=== PATIENT | female | born 1985 | race African-American/Black ===

== ENCOUNTER 2017-04-02 04:45 | Inpatient (IN) | payer BC ==
[2017-04-02] MEDS ORDERED: ELECTROLYTE-148 SOLN 1,000 ML IV SCH (05:00)
[2017-04-02] MEDS ORDERED: AMPICILLIN - 2 GM in SODIUM CHLORIDE 100 ML IVPB ONE (05:30)
[2017-04-02] MEDS ORDERED: AMPICILLIN SODIUM 2 GM VIAL ONE (05:32)
--- NOTE | 2017-04-02 05:37 | HP ---
Past Medical History - Admission Chief Complaint: 30 y/o female presented to labor and delivery c/o spontaneous rupture of amniotic membranes at 3:15 am clear fluid . rupture of membrane was confirmed by fluid and via nitrozine. History of Present Illness: her antepartum course was UNCOMPLICATED BLOOD TYPE IS O POSITIVE NEGATIVE ,RPR NEGATIVE HBSAG IS NEGATIVE RUBELLA IS POSITIVE . 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: Alzheimer's, CVA, Dementia, Migraine, Multiple Sclerosis, Peripheral Neuropathy, Parkinson's, Seizure, Syncope, TIA, Vertigo, Other Cardiovascular: No: AFIB, Aneurysm, Aortic Insufficiency, Aortic Stenosis, CAD, CHF, Deep Vein Thrombosis, HTN, Hyperlipdemia, NM, Mitral Insufficiency, Mitral Stenosis, Murmur, Pulmonary Hypertension, Other Pulmonary: No: Asthma, Bronchitis, Cancer, COPD, O2 Dependent, Pneumonia, Previously Intubated, Pulmonary Embolus, Pulmonary Fibrosis, Sleep Apnea, Other Gastrointestinal: No: Ascites, Cancer, Constipation, Crohn's Disease, Diverticulitis, Diverticulosis, Esophageal Varices, Gastritis, GERD, GI Bleed, Hemorrhoids, Hiatal Hernia, Inflamatory Bowel Disease, Irritable Bowel Disease, Pancreatitis, Peptic Ulcer Disease, Ulcerative Colitis, Other Hepatobiliary: No: Cirrhosis, Cholelithiasis, Cholecystitis, Choledocholithiasis , Hepatitis A, Hepatitis B, Hepatitis C, Other Renal/: No: Renal Failure, Renal Inusuff, BPH, Cancer, Hematuria, Hemodialysis , Neurogenic Bladder, Renal Calculi, UTI, Other Reproductive: No: Ectopic , Endometriosis, Fibroids, PID, Polycystic Ovary Syndrome, Postmenopausal, Other ...: 2 ...Para: 0 ...Term: 0 ...: 0 ...Spon : 1 ...Induced : 0 ...Multiple Gestation: 1 ...LMP: 08/10/16 ... Weeks Gestation by Dates: 36.1 ...EDC by Sono: 04/28/17 Heme/Onc: Yes: Sickle Cell Trait Infectious Disease: No: AIDS, C-Diff, Herpes Zoster, HIV, MRSA, STD's, Tuberculosis, VREF, Other Psych: No: Addictions, Anxiety, Bipolar, Depression, Panic, Psychosis, Schizophrenia, Other Musculoskeletal: No: Bursitis, Chronic low back pain, Hemiparesis, Hemiplegia, Osteoarthritis, Paraplegia, Other Rheumatology: No: Fibromyalgia, Gout, Lupus, Rheumatoid Arthritis, Sarcoidosis, Vasculitis, Other ENT: No: Allergic Rhinitis, Sinusitis, Other Endocrine: No: Guayanilla's Disease, Bull's Disease, Diabetes Insipidus, Diabetes Mellitus, Hyperparathyroidism, Hyperthyroidism, Hypothyroidism, Osteopenia, SIADH, Other Dermatology: No: Basal Cell, Cellulitis, Eczema, Melanoma, Psoriasis, Squamous Cell, Other - Past Surgical History Hx Myomectomy: No Hx Transabdominal Cerclage: No - Smoking History Smoking history: Never smoked Have you smoked in the past 12 months: No - Alcohol/Substance Use Hx Alcohol Use: No History of Substance Use: reports: None Home Medications - Allergies Allergies/Adverse Reactions: Allergies Allergy/AdvReac Type Severity Reaction Status Date / Time No Known Allergies Allergy Verified 04/02/17 05:45 - Home Medications Home Medications: Ambulatory Orders Ferrous Sulfate 325 mg PO DAILY 04/02/17 Multivitamin Tablet 1 tablet PO DAILY 04/02/17 Home Medications (free text): NO KNOWN DRUG ALLERGIES Family Disease History - Family Disease History Family History: Unremarkable Review of Systems - Review of Systems Constitutional: reports: No Symptoms Eyes: reports: No Symptoms. denies: Blind Spots, Blurred Vision, Double Vision , Eye Pain, Floaters, Photophobia, Recent Change in Vision, Other Neck: denies: No Symptoms, Decreased ROM, Lumps, Pain on Movement, Stiffness, Swollen Glands, Tenderness, Other Cardiovascular: reports: No Symptoms Respiratory: reports: No Symptoms Gastrointestinal: reports: No Symptoms Genitourinary: reports: No Symptoms Breasts: reports: No Symptoms Reported Musculoskeletal: reports: No Symptoms Integumentary: reports: No Symptoms Neurological: reports: No Symptoms Endocrine: reports: No Symptoms Hematology/Lymphatic: reports: No Symptoms Psychiatric: reports: No Symptoms Physical Exam - Maternity Constitutional: Yes: Well Nourished, No Distress, Calm Eyes: Yes: WNL, Conjunctiva Clear HENT: Yes: WNL, Atraumatic, Normocephalic Cardiovascular: Yes: WNL, Regular Rate and Rhythm Lungs: Clear to auscultation Breast(s): Yes: WNL - Abdominal Exam/OB Number of Fetuses: Multiple Presentation: Twins Contractions: Yes Regularity: Irregular Intensity: Unaware Monitor Mode: External Heart Rate (range): 150/149 Category: I Accelerations: Uniform Decelerations: None - Vaginal Exam/OB Vaginal Bleediing: No Dilatation (cm): FINGER Effacement (%): LONG Amniotic Membrane Status: Ruptured (CLEAR) Nitrazine Test: Positive Amniotic Fluid: Yes: Clear - Physical Exam Musculoskeletal: Yes: WNL Extremities: Yes: WNL Edema: No Integumentary: Yes: WNL Deep Tendon Reflex Grade: Normal +2 ...Motor Strength: WNL Psychiatric: Yes: WNL, Alert, Oriented Assessment/Plan TWIN AT 36.1 WEEKS DI/DI TWIN H/O SICKLE CELL TRAIT FOB IS NEGATIVE NEG NT/MOD SEQ SCREEN NORMAL 1 HOUR GCT H/O RIGHT SALPINGECTOMT/R ECTOPIC H/O UTERINE FIBROIDS PLAN FOR DELIVERY IS VAGINAL PENDING THE RESULTS OF THE SONOGRAM.
[2017-04-02 05:38] LABS: BASO % 0.4 % (0-2.0); EOS % 0.3 % (0-4.5); HEMATOCRIT 29.8 % (32.4-45.2); HEMOGLOBIN 9.7 GM/dL (10.7-15.3); LYMPH % 27.3 % (8-40); MCH 23.1 pg (25.7-33.7); MCHC 32.5 g/dl (32.0-36.0); MEAN PLT VOLUME 9.6 fl (7.5-11.1); MONO % 11.3 % (3.8-10.2); NEUT % 60.7 % (42.8-82.8); PLATELET COUNT 149 K/MM3 (134-434); RBC 4.19 M/mm3 (3.60-5.2); WHITE BLOOD COUNT 5.9 K/mm3 (4.0-10.0)
[2017-04-02 05:45] VITALS: BMI 32.9
[2017-04-02 05:53] LABS: INR 0.96 (0.82-1.09); PROTHROMBIN TIME (PATIENT) 10.8 SEC (9.98-11.88)
[2017-04-02 05:55] LABS: ACTIVATED PTT 31.4 SECONDS (26.9-34.4)
[2017-04-02 06:00] LABS: ANION GAP 9 (8-16); BLOOD UREA NITROGEN 7 mg/dL (7-18); CALCIUM 7.8 mg/dL (8.5-10.1); CHLORIDE 109 mmol/L (98-107); CO2 21 mmol/L (21-32); CREATININE 0.6 mg/dL (0.55-1.02); GLUCOSE,RANDOM 75 mg/dL (74-106); POTASSIUM 3.9 mmol/L (3.5-5.1); SODIUM 139 mmol/L (136-145)
--- NOTE | 2017-04-02 07:06 | PN ---
Progress Note, Labor Vaginal Exam #1 Amniotic Membrane Status: Ruptured (iup at 36.1 weeks twin gestation with premature rupture of membranes plan delivery by section)
[2017-04-02] MEDS: ELECTROLYTE-148 SOLN 1,000 ML IV SCH ×2 (08:00→13:00)
[2017-04-02] MEDS ORDERED: WITCH HAZEL 50% (TUCKS) 40 PAD/JAR PAD TP PRN (08:08)
[2017-04-02] MEDS ORDERED: diphenhydrAMINE HCL 25 MG CAPSULE (FP) PO PRN (08:08)
[2017-04-02] MEDS ORDERED: BENZOCAINE 20% 57 GM BOTTLE TP PRN (08:08)
[2017-04-02] MEDS ORDERED: BENZOCAINE 28 GM HEMORRHOIDAL OINTMENT PR PRN (08:08)
[2017-04-02] MEDS ORDERED: METHYLERGONOVINE MALEATE 0.2 MG/1 ML AMP IM PRN (08:08)
--- NOTE | 2017-04-02 08:22 | PN ---
Progress Note (short form) - Note Progress Note: Pt scanned at bedside confirmation of VTX/ back down transverse with srom at 36.1 week advised Primary Section but pt desires vaginal delivery Informed of risks delay of Section with rupture of membranes Case discussed with pt and grandmother desires to wait to see if goes into labor Neonatology discussed case HCt 29.8 Problem List - Problems (1) Twin gestation in third trimester Code(s): O30.003 - TWIN PREG, UNSP NUM PLCNTA & AMNIO SACS, THIRD TRIMESTER (2) Premature rupture of membranes (PROM), onset of labor within 24 hours, delivered, Code(s): O42.019 - PRETRM SUPRIYA ROM, ONSET LABOR W/N 24 HOURS OF RUPT, UNSP TRI
--- NOTE | 2017-04-02 08:49 | PN ---
Ante-Partal Exam - Subjective Subjective: Pt desires vaginal delivery Vital Signs: Vital Signs Temperature 98.1 F 04/02/17 08:00 Pulse Rate 89 04/02/17 08:00 Respiratory Rate 20 04/02/17 08:00 Blood Pressure 130/84 04/02/17 08:00 O2 Sat by Pulse Oximetry (%) Bleeding: No Headache: No Visual changes: No Right upper quadrant pain: No - Contractions Contractions: Yes Regularity: Regular Intensity: Moderate Monitor Mode: External - Exam during Labor Variability: Moderate Category: I Monitor Decelerations: None Exam: Vaginal Dilatation (cm): FT Effacement (%): 50% Amniotic Membrane Status: Ruptured Nitrazine Test: Positive Amniotic Fluid: Clear Presentation: Vertex Station: -2 - Intrapartum Hemorrhage Risk Risk Score: 1 Risk Level: Medium Risk - Assessment/Plan Assessment/Plan: Twin gestation at 36 weeks srom prodromal labor VTX/Transverse Plan COntinue monitoring EFM
[2017-04-02] MEDS: AMPICILLIN - 1 GM in SODIUM CHLORIDE 100 ML IVPB SCH ×4 (09:39→22:02)
[2017-04-02] MEDS ORDERED: TUBERCULIN PPD 5 TU/0.1ML SYRINGE (IN PATIENT USE ONLY) ID ONE (10:00)
--- NOTE | 2017-04-02 15:28 | PN ---
Ante-Partal Exam - Subjective Subjective: Pt mild contractions leaking fluids with twin gestation at 36 week Vital Signs: Vital Signs Temperature 97.6 F 04/02/17 14:00 Pulse Rate 72 04/02/17 14:00 Respiratory Rate 20 04/02/17 14:00 Blood Pressure 126/86 04/02/17 14:00 O2 Sat by Pulse Oximetry (%) Bleeding: No Headache: No Visual changes: No Right upper quadrant pain: No - Contractions Contractions: Yes Regularity: Regular Intensity: Mild Monitor Mode: External - Exam during Labor Variability: Moderate Heart Rate Location: [facility] Category: I Monitor Accelerations: Present Monitor Decelerations: None Amniotic Membrane Status: Ruptured Presentation: Vertex - Intrapartum Hemorrhage Risk Risk Score: 1 Risk Level: Medium Risk - Assessment/Plan Assessment/Plan: iup at 36.1 week twins PPOM at 36.1 week vtx/transverse twin gestation mild contractions - not in labor Plan will do CS at 8pm notify peds notify anesthesvelasquez kelsey
[2017-04-02] MEDS ORDERED: morphine SULFATE/Preservative Free 0.5 MG/ML (1cc Syringe) EP ONE (19:51)
[2017-04-02] MEDS ORDERED: ONDANSETRON 4 MG/2 ML VIAL IVPUSH PRN (19:51)
[2017-04-02] MEDS ORDERED: IBUPROFEN 800 MG/8 ML IJ IVPB PRN (19:52)
--- NOTE | 2017-04-02 20:18 | PN ---
Ante-Partal Exam - Subjective Subjective: Pt without complaints + rom no bleeding no pain Vital Signs: Vital Signs Temperature 98.1 F 04/02/17 19:00 Pulse Rate 82 04/02/17 19:00 Respiratory Rate 20 04/02/17 19:00 Blood Pressure 127/79 04/02/17 19:00 O2 Sat by Pulse Oximetry (%) Bleeding: No Headache: No Visual changes: No Right upper quadrant pain: No - Contractions Contractions: Yes Regularity: Regular Intensity: Unaware Monitor Mode: External - Exam during Labor Heart Rate: 140 (150 tein B) Variability: Moderate Category: I Monitor Accelerations: Present Monitor Decelerations: None Exam: Vaginal Dilatation (cm): FT Effacement (%): 70 Amniotic Membrane Status: Ruptured Nitrazine Test: Positive Amniotic Fluid: Clear Presentation: Vertex Station: -2 - Intrapartum Hemorrhage Risk Risk Score: 1 Risk Level: Medium Risk - Assessment/Plan Assessment/Plan: IUP at 36 week twin gestation PROM Cat 1 Failure to dilate Plan primary CS notify Neonatology Notify anesthesia
--- NOTE | 2017-04-02 20:21 | OP ---
Operative Note - Note: Operative Date: 04/02/17 Pre-Operative Diagnosis: Failure to progress. PPROM. Twin gestation at 36 week Operation: Primary low transverse Sectoin Findings: Twin A Cord presenting vtx male nuchal cord Twin B Transverse right tube - only proximal tube seen left fallopian tube normal Post-Operative Diagnosis: Same as Pre-op Surgeon: Kassidy Lomax Whale Trainer: Mychal Balbuena Anesthesiologist/COMMUNITY RECREATION PROGRAMMER: Josué Romero Anesthesia: Spinal Specimens Removed: placenta A & placenta B Estimated Blood Loss (mls): 800 Operative Report Dictated: Yes
[2017-04-02] MEDS ORDERED: ceFAZolin SODIUM 1 GM VIAL ONE (20:23)
[2017-04-02] MEDS ORDERED: morphine SULFATE/Preservative Free 0.5 MG/ML (1cc Syringe) ONE (20:23)
[2017-04-02] MEDS ORDERED: OXYTOCIN 10 UNITS/ML VIAL ONE ×2 (21:02→21:35)
[2017-04-02] MEDS ORDERED: OXYTOCIN 20 UNITS in 0.9% NS 20 UNIT/1,000 ML INFUS.BAG IV SCH (22:00)
[2017-04-02 22:09] LABS: VENOUS PC02 53.9 mmHg (38-52); VENOUS PH 7.25 (7.32-7.42)
[2017-04-02 22:14] LABS: VENOUS PO2 17.1 mmHg (28-48)
--- NOTE | 2017-04-02 22:14 | OP ---
DATE OF OPERATION: 04/02/2017 PREOPERATIVE DIAGNOSIS: Failure to progress, premature ruptured membranes, and twin gestation at 36 weeks. OPERATION: Primary low transverse section. POSTOPERATIVE DIAGNOSIS: Twin A vertex and twin B transverse. Twin A baby boy, twin B baby girl. Live female and male . SURGEON: Phill Lomax M.D. LAB[employer]ER [employer]: [place] ANESTHESIOLOGIST: Josué Romero M.D. ANESTHESIA: Spinal. DESCRIPTION OF PROCEDURE: Patient was taken to the operating room, placed in supine position. Prepped and draped in usual sterile fashion. Timeout was performed in accordance with hospital regulation. Pfannenstiel skin incision was made with a scalpel after timeout had been performed. Cautery was then used to go through layers of abdominal wall towards the fascia. Fascia was cut in the midline, and cautery was then used to open the fascia in smiling fashion. Adrianne was then used to bluntly and sharply dissect the rectus muscle of the fascia. The muscle split in the midline. Peritoneal cavity was then entered and carried upward and downward. The bladder retractor was then placed. Vesicouterine reflection was then entered. The bladder was bluntly dissected out of the operative field. The scalpel was then used to make a low transverse uterine incision. Incision was carried upward using bandage scissors. A live male infant was delivered and noted to have a cord presenting prior to the baby. A nuchal cord x1 was also seen. was delivered without difficulty in OP position. The cord was clamped and cut. Cord pH obtained, and cord blood obtained. was handed to benzene operator. Baby B had flipped from transverse to vertex presentation and delivered on OP position. Nose to mouth suction performed. Shoulders were delivered without difficulty. Cord was clamped and cut. Cord pH obtained, cord blood obtained. Infant girl was handed to benzene operator. The first twin was infant boy and placentas were manually extracted from the uterus. The uterus was exteriorized and cleaned with clean lap pads. The uterine incision was then closed using 0 Biosyn suture, first layer continuous interlocking, second layer imbricating the first layer. Hemostasis was achieved using [id number] sutures. A right tube was noted to be partially removed from patient had a previous ectopic. Left tube was noted to be normal. An anterior 3-cm myoma was also noted. Uterus interiorized. Abdominal cavity cleaned with clean lap pads. Peritoneum closed using 0 Biosyn suture. Fascia was then closed using 0 Vicryl suture in 2 parts. Subcutaneous was then closed using 0 Biosyn suture, and skin was then closed using 3-0 Vicryl in subcuticular fashion. Wound was washed and dressed. Patient tolerated the procedure well. Estimated blood 800 mL. PHILL LOMAX M.D. [id number]
[2017-04-02 22:18] LABS: ARTERIAL BLOOD GAS BASE EXCESS -7.5 meq/l (-2-2)
[2017-04-02 22:22] LABS: ARTERIAL BLOOD GAS pH 7.17 (7.35-7.45)
[2017-04-02 22:23] LABS: ARTERIAL BLOOD GAS PCO2 64.6 mmHg (35-45)
[2017-04-02 22:25] LABS: ARTERIAL BLD GAS O2 SATURATION 15.2 % (90-98.9); ARTERIAL BLOOD GAS PO2 10.2 mmHg (80-100)
[2017-04-02 22:26] LABS: VENOUS PH 7.26 (7.32-7.42)
[2017-04-02 22:27] LABS: VENOUS PC02 51.5 mmHg (38-52)
[2017-04-02 22:31] LABS: ARTERIAL BLOOD GAS PCO2 53.4 mmHg (35-45)
[2017-04-02] MEDS ORDERED: OXYTOCIN 20 UNITS in 0.9% NS 20 UNIT/1,000 ML INFUS.BAG IV ONE (22:35)
[2017-04-02 22:38] LABS: ARTERIAL BLOOD GAS PO2 21.4 mmHg (80-100); ARTERIAL BLOOD GAS pH 7.23 (7.35-7.45)
[2017-04-02 22:39] LABS: ARTERIAL BLD GAS O2 SATURATION 35.3 % (90-98.9)
[2017-04-02 22:40] LABS: VENOUS PO2 17.5 mmHg (28-48)
[2017-04-03 07:47] LABS: HEMATOCRIT 24.3 % (32.4-45.2); HEMOGLOBIN 7.9 GM/dL (10.7-15.3); MCH 22.9 pg (25.7-33.7); MCHC 32.5 g/dl (32.0-36.0); MEAN CELL VOLUME 70.4 fl (80-96); PLATELET COUNT 120 K/MM3 (134-434); RBC 3.45 M/mm3 (3.60-5.2); RDW 16.7 % (11.6-15.6); WHITE BLOOD COUNT 10.8 K/mm3 (4.0-10.0)
[2017-04-03] MEDS ORDERED: BISACODYL 10 MG SUPP.RECT RC PRN (08:09)
[2017-04-03] MEDS: IBUPROFEN 800 MG/8 ML IJ IVPB PRN ×2 (09:20→15:41)
--- NOTE | 2017-04-03 09:48 | PN ---
Progress Note (SOAP) - Subjective Chief Complaint: Pt doing well - Current Medications Current Medications: Active Medications Acetaminophen (Tylenol -) 650 mg PO Q4H PRN PRN Reason: FEVER Benzocaine (Americaine 20% [place] -) 1 spray TP PRN PRN PRN Reason: Pain - Topical Benzocaine (Americaine Ointment -) 1 applic CO PRN PRN PRN Reason: Pain - Topical Bisacodyl (Dulcolax Suppository -) 10 mg RC PRN PRN PRN Reason: CONSTIPATION Diphenhydramine HCl (Benadryl -) 25 mg PO Q6H PRN PRN Reason: FOR ITCHING Diphenhydramine HCl (Benadryl Injection -) 25 mg IVPUSH Q4H PRN PRN Reason: Pruritis Last Admin: 04/02/17 22:45 Dose: 25 mg Parenteral Electrolytes (Plasma-Lyte 148 -) 1,000 mls @ 125 mls/hr IV [facility] Last Admin: 04/02/17 05:30 Dose: 125 mls/hr Parenteral Electrolytes (Plasma-Lyte 148 -) 1,000 mls @ 125 mls/hr IV [facility] Last Admin: 04/02/17 13:00 Dose: 125 mls/hr Oxytocin/Sodium Chloride (Normal Saline+20 Units Oxytocin -) 20 unit in 1,000 mls @ 125 mls/hr IV [facility] Last Admin: 04/02/17 22:35 Dose: 125 mls/hr Ibuprofen (Caldolor Injection -) 800 mg IVPB Q6H PRN PRN Reason: Fever - If PO not effective. Last Admin: 04/03/17 09:20 Dose: 800 mg Ibuprofen (Motrin -) 600 mg PO Q4H PRN PRN Reason: PAIN LEVEL 1-5 Ibuprofen (Caldolor Injection -) 600 mg IVPB Q8H PRN PRN Reason: FEVER Methylergonovine Maleate (Methergine Injection -) 0.2 mg IM Q4H PRN PRN Reason: EXCESSIVE BLEEDING Ondansetron HCl (Zofran Injection) 4 mg IVPUSH Q4H PRN PRN Reason: NAUSEA Oxycodone HCl (Roxicodone -) 5 mg PO Q4H PRN PRN Reason: PAIN LEVEL 1-5 Oxycodone HCl (Roxicodone -) 10 mg PO Q4H PRN PRN Reason: PAIN LEVEL 6-10 Senna/Docusate Sodium (Pericolace -) 2 tablet PO HS PRN PRN Reason: CONSTIPATION Simethicone (Mylicon -) 80 mg PO Q4H PRN PRN Reason: GAS Witch Aisha/Glycerin (Tucks Pads -) 1 pad TP PRN PRN PRN Reason: Pain - Topical - Objective Vital Signs: Vital Signs Temperature 99.3 F 04/03/17 06:00 Pulse Rate 102 H 04/03/17 06:00 Respiratory Rate 20 04/03/17 09:00 Blood Pressure 113/67 04/03/17 06:00 O2 Sat by Pulse Oximetry (%) 100 04/02/17 21:50 Constitutional: Yes: Well Nourished, No Distress Cardiovascular: Yes: WNL Respiratory: Yes: WNL Gastrointestinal: Yes: WNL ....Post : Yes: Uterus firm, Uterus non-tender Wound/Incision: Yes: Steri Strips, Open to air Psychiatric: Yes: WNL, Alert, Oriented Labs Lab Results: CBC, BMP 04/03/17 06:10 04/02/17 05:30 Problem List - Problems (1) Twin gestation in third trimester Code(s): O30.003 - TWIN PREG, UNSP NUM PLCNTA & AMNIO SACS, THIRD TRIMESTER (2) Premature rupture of membranes (PROM), onset of labor within 24 hours, delivered, Code(s): O42.019 - PRETRM SUPRIYA ROM, ONSET LABOR W/N 24 HOURS OF RUPT, UNSP TRI Assessment/Plan POD # 1 S/P CS Plan OOB percocet
--- NOTE | 2017-04-03 11:45 | PN ---
Progress Note (short form) - Note Progress Note: Anesthesia POD#1 S/P under spinal anesthesia VSS,itch is still present but less,no N/V,pain is bearable. Full recovery in her legs. Esther Rose MD.
[2017-04-04] MEDS: ACETAMINOPHEN 325 MG TABLET (FP) PO PRN ×4 (01:50→22:11)
[2017-04-04] MEDS: oxyCODONE HCL 5 MG TABLET PO PRN ×4 (01:50→22:11)
[2017-04-04] MEDS: SIMETHICONE 80 MG TAB.CHEW (FP) PO PRN ×4 (01:50→22:11)
--- NOTE | 2017-04-04 18:41 | PATH ---
Surgical Pathology Report Patient Name: CHARLES FLOOD [facility]. Rec. 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 Electronically Signed Neda Jefferson M.D. Gross Description Received in formalin labeled "placenta," are twin placentas comprised of 2 separate discs, joined by dividing membranes. There is one clamp marking the umbilical cord placenta "A" and 2 clamps marking the umbilical cord of placenta "B," per the surgeon. Placenta "A" is 387 g and measures 18.0 x 13.5 x 2.0 cm. The attached membranes are carter, translucent with focal opacities and insert marginally. The umbilical cord measures 13 cm in length and averages 1.3 cm in diameter. The cord inserts eccentrically, 2.5 cm to the nearest margin. No true knots or strictures are identified. Cut surface of the umbilical cord reveals 3 vessels. The surface is khan blue with minimal fibrin deposition and appropriate caliber vessels. The maternal surface is red-brown with focal defects. Sectioning reveals red-brown, spongy parenchyma. No lesions are identified. Placenta "B" is 314 g and measures 21.0 x 13.0 x 1.8 cm. The attached membranes are carter, translucent with focal opacities and insert marginally. The umbilical cord measures 14 cm in length and averages 1 cm in diameter. The cord inserts eccentrically, 2.5 cm to the nearest margin. No true knots or strictures are identified. Cut surface of the umbilical cord reveals 3 vessels. The surface is khan blue with minimal fibrin deposition and appropriate caliber vessels. The maternal surface is red-brown with focal defects. Sectioning reveals red-brown, spongy parenchyma. No lesions are identified. Headwaiter/Headwaitress sections are submitted in 7 cassettes as follows: 1-placenta "A" membrane rolls and umbilical cord; 0-5-yqox-thickness sections of placenta "A"; 4-dividing membranes; 5-placenta "B" membrane rolls and umbilical cord; 1-6-reqi-thickness sections of placenta "B". 04/03/2017
[2017-04-04] MEDS: SENNOSIDES/DOCUSATE COMBO (SENNA PLUS) TABLET (UD) PO PRN (22:10)
--- NOTE | 2017-04-05 01:25 | PN ---
Progress Note (SOAP) - Subjective Chief Complaint: Pt doing well + flatus - Current Medications Current Medications: Active Medications Acetaminophen (Tylenol -) 650 mg PO Q4H PRN PRN Reason: FEVER Last Admin: 04/04/17 22:11 Dose: 650 mg Benzocaine (Americaine 20% [place] -) 1 spray TP PRN PRN PRN Reason: Pain - Topical Benzocaine (Americaine Ointment -) 1 applic ME PRN PRN PRN Reason: Pain - Topical Bisacodyl (Dulcolax Suppository -) 10 mg RC PRN PRN PRN Reason: CONSTIPATION Diphenhydramine HCl (Benadryl -) 25 mg PO Q6H PRN PRN Reason: FOR ITCHING Diphenhydramine HCl (Benadryl Injection -) 25 mg IVPUSH Q4H PRN PRN Reason: Pruritis Last Admin: 04/02/17 22:45 Dose: 25 mg Ibuprofen (Caldolor Injection -) 800 mg IVPB Q6H PRN PRN Reason: Fever - If PO not effective. Last Admin: 04/03/17 15:41 Dose: 800 mg Ibuprofen (Motrin -) 600 mg PO Q4H PRN PRN Reason: PAIN LEVEL 1-5 Ibuprofen (Caldolor Injection -) 600 mg IVPB Q8H PRN PRN Reason: FEVER Methylergonovine Maleate (Methergine Injection -) 0.2 mg IM Q4H PRN PRN Reason: EXCESSIVE BLEEDING Ondansetron HCl (Zofran Injection) 4 mg IVPUSH Q4H PRN PRN Reason: NAUSEA Oxycodone HCl (Roxicodone -) 5 mg PO Q4H PRN PRN Reason: PAIN LEVEL 1-5 Last Admin: 04/04/17 18:06 Dose: 5 mg Oxycodone HCl (Roxicodone -) 10 mg PO Q4H PRN PRN Reason: PAIN LEVEL 6-10 Last Admin: 04/04/17 22:11 Dose: 10 mg Senna/Docusate Sodium (Pericolace -) 2 tablet PO HS PRN PRN Reason: CONSTIPATION Last Admin: 04/04/17 22:10 Dose: 2 tablet Simethicone (Mylicon -) 80 mg PO Q4H PRN PRN Reason: GAS Last Admin: 04/04/17 22:11 Dose: 80 mg Witch Aisha/Glycerin (Tucks Pads -) 1 pad TP PRN PRN PRN Reason: Pain - Topical - Objective Vital Signs: Vital Signs Temperature 98.5 F 04/04/17 22:00 Pulse Rate 100 H 04/04/17 22:00 Respiratory Rate 20 04/04/17 22:00 Blood Pressure 126/72 04/04/17 22:00 O2 Sat by Pulse Oximetry (%) 100 04/02/17 21:50 Constitutional: Yes: Well Nourished, No Distress Respiratory: Yes: WNL Gastrointestinal: Yes: WNL, Normal Bowel Sounds ....Post : Yes: Uterus firm, Uterus non-tender Breast(s): Yes: WNL Musculoskeletal: Yes: WNL Extremities: Yes: WNL Edema: No Wound/Incision: Yes: Clean/Dry, Well Approximated, Steri Strips, Open to air Neurological: Yes: WNL, Alert, Oriented Labs Lab Results: CBC, BMP 04/03/17 06:10 04/02/17 05:30 Problem List - Problems (1) Twin gestation in third trimester Code(s): O30.003 - TWIN PREG, UNSP NUM PLCNTA & AMNIO SACS, THIRD TRIMESTER (2) Premature rupture of membranes (PROM), onset of labor within 24 hours, delivered, Code(s): O42.019 - PRETRM SUPRIYA ROM, ONSET LABOR W/N 24 HOURS OF RUPT, UNSP TRI Assessment/Plan POD2 Stable Anemia Plan OOB Percocet
[2017-04-05 09:05] LABS: HEMATOCRIT 21.4 % (32.4-45.2); MCH 23.1 pg (25.7-33.7); MCHC 32.8 g/dl (32.0-36.0); MEAN CELL VOLUME 70.4 fl (80-96); MEAN PLT VOLUME 9.3 fl (7.5-11.1); PLATELET COUNT 150 K/MM3 (134-434); RBC 3.04 M/mm3 (3.60-5.2); RDW 17.9 % (11.6-15.6); WHITE BLOOD COUNT 10.9 K/mm3 (4.0-10.0)
[2017-04-05] MEDS: ACETAMINOPHEN 325 MG TABLET (FP) PO PRN ×2 (10:30→21:58)
[2017-04-05] MEDS: IBUPROFEN 600 MG TABLET (FP) PO PRN ×2 (10:31→21:58)
[2017-04-05] MEDS: SIMETHICONE 80 MG TAB.CHEW (FP) PO PRN ×2 (10:32→21:57)
[2017-04-05] MEDS: FERROUS SO4 325 MG TABLET (FP) PO SCH (21:57)
[2017-04-05] MEDS: SENNOSIDES/DOCUSATE COMBO (SENNA PLUS) TABLET (UD) PO PRN (21:58)
--- NOTE | 2017-04-06 09:19 | DS ---
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 Vital Signs: Vital Signs Temperature 97.4 F L 04/05/17 22:00 Pulse Rate 103 H 04/05/17 22:00 Respiratory Rate 20 04/05/17 22:00 Blood Pressure 122/91 04/05/17 22:00 O2 Sat by Pulse Oximetry (%) 100 04/02/17 21:50 Constitutional: Yes: Well Nourished Eyes: Yes: Conjunctiva Clear HENT: Yes: Atraumatic Neck: Yes: Supple Cardiovascular: Yes: Regular Rate and Rhythm Respiratory: Yes: Regular Gastrointestinal: Yes: Normal Bowel Sounds External Genitalia: Yes: Normal Vaginal Exam: Yes: Normal Cervix: Yes: Normal Uterus: Yes: Firm Wound/Incision: Yes: Well Approximated, Steri Strips (in place) Neurological: Yes: Alert, Oriented ...Motor Strength: WNL Psychiatric: Yes: Alert, Oriented Labs: CBC, BMP 04/05/17 08:00 04/02/17 05:30 Delivery - Delivery Episiotomy/Laceration: None EBL (cc): 800 Delivery, Single - [place] Feeding Plan Initial Plan: Exclusive throughout hospitalization Delivery, Multiple Births - Stages of Labor Delivery Baby "A" Date: 04/02/17 Time: 21:01 Delivery Baby "B" Date: 04/02/17 Time: 21:03 Placenta/Membranes "A" Date: 04/02/17 Time: 21:06 Placenta/Membranes "B" Date: 04/02/17 Time: 21:06 - Condition of Multiple Births [place] 1 (A) 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 Cognos Developer: Gilbert Sue Infant Gender: Male Weight: 6 lb 1 oz Total Hours ROM (HRS/MINS): 17h46m 2 (B) 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 Cognos Developer: Gilbert Sue Infant Gender: Female Weight: 5 lb 1 oz Position: OP Total Hours ROM (HRS/MINS): 1MIN - 1 (A) 1 Minute Score: 9 [place] 1 (A) 5 Minutes Score: 9 [place] 2 (B) 1 Minute Score: 8 [place] 2 (B) 5 Minutes Score: 9 Discharge Summary Reason For Visit: LABOR ADMIT Current Active Problems Premature rupture of membranes (PROM), onset of labor within 24 hours, delivered , (Acute) Twin gestation in third trimester (Acute) Procedures: Principal: Primary Low Transverse Hospital Course: Routine post op care Condition: Good - Instructions Diet, Activity, Other Instructions: Physical activity Resume your normal everyday activity as tolerated no heavy lifting or exercise until seen by your surgeon. You may walk unlimited rosita of and climb stairs. You may resume driving the car when you feel safe and comfortable behind the wheel. No sexual activity as instructed. Wound care If you have a bandage, leave it on, and keep dry for 48-72 hours. After that time discard the outer bandage. If they are tapes on the skin under the out of bandage leave them in place. They will peel off in the next 7 to 10 days. Do Not Peel them off. You may shower the day after surgery. If there are tapes present on the skin, you may shower over them. Diet There are no dietary restrictions. Eat healthy, high-fiber foods. Drink 6 to 8 glasses of liquid each day. This will assist in keeping your bowels are regular. Pain management You may take Tylenol or acetaminophen or Ibuprofen (for example, Motrin, Advil etc.) from my pain prescription medication is ordered should be taken as prescribed for moderate to severe pain. Call MD for any of the following: Severe pain not relieved by medication Fever of 101 or higher Excessive bleeding or drainage on dressing Inability to urinate Disposition: HOME - Home Medications Comprehensive Discharge Medication List: Ambulatory Orders Ferrous Sulfate 325 mg PO DAILY 04/02/17 Multivitamin Tablet 1 tablet PO DAILY 04/02/17 Ferrous Sulfate 325 mg PO ASDIR 30 Days #60 tablet 04/05/17 Oxycodone HCl/Acetaminophen [Percocet 5-325 mg Tablet] 1 - 2 tab PO Q6H #20 tab MDD 6 04/05/17
[2017-04-06] MEDS: IBUPROFEN 600 MG TABLET (FP) PO PRN ×2 (09:23→21:25)
[2017-04-06] MEDS: ACETAMINOPHEN 325 MG TABLET (FP) PO PRN ×2 (09:24→21:26)
[2017-04-06] MEDS: FERROUS SO4 325 MG TABLET (FP) PO SCH ×2 (09:25→21:24)
--- NOTE | 2017-04-06 17:47 | PN ---
Progress Note (short form) - Note Progress Note: Called due to pt with dizziness and crying due to bab staying in hospital will get consult from hospitalist and do stat CBC Vital Signs Period Temp Pulse Resp BP Sys/Niño Pulse Ox Last 24 Hr 97.4 F-99.5 F 100-103 20-20 114-122/78-91 Vital Signs Period Temp Pulse Resp BP Sys/Niño Pulse Ox Last 24 Hr 97.4 F-99.5 F 100-103 20-20 114-122/78-91 Problem List - Problems (1) Twin gestation in third trimester Code(s): O30.003 - TWIN PREG, UNSP NUM PLCNTA & AMNIO SACS, THIRD TRIMESTER (2) Premature rupture of membranes (PROM), onset of labor within 24 hours, delivered, Code(s): O42.019 - PRETRM SUPRIYA ROM, ONSET LABOR W/N 24 HOURS OF RUPT, UNSP TRI
--- NOTE | 2017-04-06 19:17 | HOSP ---
Subjective - Review of Symptoms General: Yes: Fatigue Cardiovascular: Yes: Light Headedness Gastrointestinal: Yes: Abdominal Pain, Constipation Musculoskeletal: Yes: Back Pain Physical Examination Vital Signs: Vital Signs Temperature 99.5 F 04/06/17 10:00 Pulse Rate 100 H 04/06/17 10:00 Respiratory Rate 20 04/06/17 10:00 Blood Pressure 114/78 04/06/17 10:00 O2 Sat by Pulse Oximetry (%) 100 04/02/17 21:50 Constitutional: Yes: Anxious Eyes: Yes: WNL HENT: Yes: WNL Neck: Yes: WNL Cardiovascular: Yes: WNL Respiratory: Yes: WNL Gastrointestinal: Yes: WNL Extremities: Yes: WNL Neurological: Yes: WNL Labs: CBC, BMP 04/05/17 08:00 04/02/17 05:30 Hospitalist Encounter Assessment: 30F s/p for twin . called to evaluate pt for anxiety. Pt endorses lightheadedness, anxiety, intermittent back pain, and constipation. Pt states that her anxiety began after hearing that her daughter desatted when being burped, and the doctors wanted the daughter to stay in the hospital for 3 more days for observation. However, they told pt that she and son could go home. Pt became very overwhelmed at the thought of being from children and started crying. Physical exam benign. A and P: lightheadedness 2/2 Hgb of 7 2/2 recent anxiety 2/2 news of daughter's status back pain 2/2 trauma of constipation s/p surgery -repeat CBC -pt refused anxiety meds, so continue to monitor -monitor back pain -added miralax for constipation -Praneeth Martines MD PGY1 Visit type - Emergency Visit Emergency Visit: No - New Patient This patient is new to me today: Yes Date on this admission: 04/06/17 - Critical Care Critical Care patient: No
[2017-04-06 21:01] LABS: BASO % 0.3 % (0-2.0); EOS % 0.6 % (0-4.5); HEMATOCRIT 21.4 % (32.4-45.2); LYMPH % 11.7 % (8-40); MCH 23.2 pg (25.7-33.7); MCHC 32.4 g/dl (32.0-36.0); MEAN CELL VOLUME 71.6 fl (80-96); MEAN PLT VOLUME 8.9 fl (7.5-11.1); MONO % 6.6 % (3.8-10.2); NEUT % 80.8 % (42.8-82.8); PLATELET COUNT 180 K/MM3 (134-434); RBC 2.99 M/mm3 (3.60-5.2); RDW 17.5 % (11.6-15.6); WHITE BLOOD COUNT 10.9 K/mm3 (4.0-10.0)
[2017-04-06 21:06] LABS: HEMOGLOBIN 6.9 GM/dL (10.7-15.3)
[2017-04-06] MEDS: SIMETHICONE 80 MG TAB.CHEW (FP) PO PRN (21:24)
[2017-04-06] MEDS: POLYETHYLENE GLYCOL 3350 119 GM BTL PO SCH (21:24)
[2017-04-07] MEDS: ACETAMINOPHEN 325 MG TABLET (FP) PO PRN (10:08)
[2017-04-07] MEDS: FERROUS SO4 325 MG TABLET (FP) PO SCH (10:09)
[2017-04-07] MEDS: POLYETHYLENE GLYCOL 3350 119 GM BTL PO SCH (11:00)
[2017-04-07 14:06] VITALS: BP 126/78; PULSE 103; TEMP 98.6
--- NOTE | 2017-04-07 14:56 | PN ---
Progress Note (short form) - Note Progress Note: Anesthesia consult 31 y/1 F s/p section for twin on 04/02/17 under spinal anesthesia. POD#5 today, called to evaluate patient for intermittent back pain. Patient recovered well post spinal anesthesia. Patient AAOX3, in no acute distress at present, no back pain, some abdominal pain reported. VSS, BP126/78, HR 103, temp 98.6, RR20, ambulating, sensory motor intact distally, able to urinate and move bowels. Patient is severely anemic H?H6.9/ 21.4, refusing blood transfusion as per nurse. Patient complaining of intermittent back pain, not related to any position or exercise, cramp like extending to the abdomen at times. Pain not radiating to the lower extremities. Patient reassured and instructed to go to the ED if pain persists or gets worse after discharge home.
== END 2017-04-07 20:55 | disposition home or self-care (01) | DRG 765 ==
LOC: JDEL 04:45 → JLDR 05:00 → J3W 04-03 00:01
PROVIDERS: ADMIT Obstetrics & Gynecology; ATTEND Obstetrics & Gynecology
PROC: 10D00Z1 Extraction of Products of Conception, Low, Open Approach (ICD-10-PCS; principal; 2017-04-02)
DX: O42.013 Preterm premature rupture of membranes, onset of labor within 24 hours of rupture, third trimester (principal); O60.14X0 Preterm labor third trimester with preterm delivery third trimester, not applicable or unspecified; O62.0 Primary inadequate contractions; O69.81X1 Labor and delivery complicated by cord around neck, without compression, fetus 1; O30.043 Twin pregnancy, dichorionic/diamniotic, third trimester; O99.02 Anemia complicating childbirth; D57.3 Sickle-cell trait; O75.89 Other specified complications of labor and delivery; D64.9 Anemia, unspecified; K59.00 Constipation, unspecified; O34.13 Maternal care for benign tumor of corpus uteri, third trimester; D25.9 Leiomyoma of uterus, unspecified; Z90.79 Acquired absence of other genital organ(s); O34.29 Maternal care due to uterine scar from other previous surgery; Z3A.36 36 weeks gestation of pregnancy; Z37.2 Twins, both liveborn
CPT/HCPCS: 36415; 36600; 76810-TC; 76817-TC; 80048; 82803; 85025; 85027; 85610; 85730; 86593; 86850; 86900; 86901; 87389; 88307-TC